=== PATIENT | female | born 1970 | race Caucasian/White ===

== ENCOUNTER 2020-05-16 20:06 | Emergency (ER) | payer OTHER, SELFPAY ==
[~2020-05-16] VITALS: Ht 167.6 cm; Wt 93.0 kg
[2020-05-16 20:31] VITALS: Ht 167.6 cm; Wt 93.0 kg
[2020-05-16 22:25] VITALS: BP 130/74
== END 2020-05-16 22:25 | disposition home or self-care (01) ==
LOC: ED 20:06
DX: U07.1 COVID-19 (principal); J40 Bronchitis, not specified as acute or chronic; B34.9 Viral infection, unspecified; Z88.0 Allergy status to penicillin
CPT/HCPCS: 87804; J7512; Q0092; U0003-CS